=== PATIENT | female | born 1965 | race African-American/Black ===

== ENCOUNTER 2018-04-03 14:06 | Emergency (ER) | payer SELFPAY | END 2018-04-03 14:29 | disposition left against medical advice (07) | LOC: ED 14:06 | DX: Z53.21 Procedure and treatment not carried out due to patient leaving prior to being seen by health care provider (principal) ==

== ENCOUNTER 2020-02-19 11:46 | Emergency (ER) | payer SELFPAY | END 2020-02-19 12:34 | disposition left against medical advice (07) | LOC: ED 11:46 | DX: Z53.21 Procedure and treatment not carried out due to patient leaving prior to being seen by health care provider (principal) ==